=== PATIENT | male | born 1990 | race Caucasian/White ===

== ENCOUNTER 2016-07-27 13:06 | Emergency (ER) | payer SELFPAY ==
[~2016-07-27] VITALS: Ht 177.8 cm; Wt 113.4 kg
[2016-07-27 16:37] VITALS: BP 146/92
== END 2016-07-27 16:37 | disposition home or self-care (01) ==
LOC: ED 13:06
DX: H92.02 Otalgia, left ear (principal); H57.8 Other specified disorders of eye and adnexa

== ENCOUNTER 2017-07-08 10:51 | Emergency (ER) | payer OTHER ==
[~2017-07-08] VITALS: Ht 177.8 cm; Wt 114.8 kg
[2017-07-08 10:57] VITALS: Ht 177.8 cm; Wt 114.8 kg
[2017-07-08 13:20] VITALS: BP 138/86
== END 2017-07-08 14:05 | disposition home or self-care (01) ==
LOC: ED 10:51
DX: H01.003 Unspecified blepharitis right eye, unspecified eyelid (principal); F12.10 Cannabis abuse, uncomplicated

== ENCOUNTER 2017-11-16 21:20 | Emergency (ER) | payer OTHER ==
[~2017-11-16] VITALS: Ht 172.7 cm; Wt 115.2 kg
[2017-11-16 21:22] VITALS: Ht 172.7 cm; Wt 115.2 kg
[2017-11-16 22:10] VITALS: BP 119/78
== END 2017-11-16 22:10 | disposition home or self-care (01) ==
LOC: ED 21:20
DX: R10.13 Epigastric pain (principal); R11.2 Nausea with vomiting, unspecified; R19.7 Diarrhea, unspecified; Z90.49 Acquired absence of other specified parts of digestive tract
CPT/HCPCS: J1885; Q0162

== ENCOUNTER 2019-02-23 18:12 | Emergency (ER) | payer OTHER ==
[~2019-02-23] VITALS: Ht 177.8 cm; Wt 108.4 kg
[2019-02-23 18:27] VITALS: Ht 177.8 cm; Wt 108.4 kg
[2019-02-23 23:47] VITALS: BP 149/88
== END 2019-02-23 23:47 | disposition home or self-care (01) ==
LOC: ED 18:12
DX: T15.92XA Foreign body on external eye, part unspecified, left eye, initial encounter (principal); S05.02XA Injury of conjunctiva and corneal abrasion without foreign body, left eye, initial encounter; X58.XXXA Exposure to other specified factors, initial encounter; Y92.9 Unspecified place or not applicable

== ENCOUNTER 2019-06-18 20:32 | Emergency (ER) | payer OTHER ==
[~2019-06-18] VITALS: Ht 177.8 cm; Wt 105.2 kg
[2019-06-18 20:43] VITALS: Ht 177.8 cm; Wt 105.2 kg
[2019-06-18 21:33] LABS: BASOPHIL % 0.5 % (0-2); PLATELET COUNT 228 x10^3mcL (130-400); RED CELL DISTRIBUTION WIDTH 12.7 % (11.5-14.5)
[2019-06-18 21:44] LABS: CALCIUM 8.1 mg/dL (8.5-10.1); CARBON DIOXIDE 23.5 mmol/L (21-32); CHLORIDE SERUM 105 mmol/L (98-107); CREATININE SERUM 0.6 mg/dL (0.7-1.3); GFR1 > 60 mL/min; POTASSIUM SERUM 3.6 mmol/L (3.5-5.1); SODIUM SERUM 138 mmol/L (136-145)
[2019-06-18 21:48] LABS: ALBUMIN 3.8 g/dL (3.4-5.0); ALKALINE PHOSPHATASE 60 U/L (46-116); ALT/SGPT 30 U/L (16-63); BILIRUBIN TOTAL 0.4 mg/dL (0.20-1.00); LIPASE 136 IU/L (73-393); TOTAL PROTEIN, SERUM 7.3 g/dL (6.4-8.2)
[2019-06-18 22:03] LABS: AST/SGOT 26 U/L (15-37)
[2019-06-18 22:06] LABS: GLUCOSE SERUM 83 mg/dL (74-106)
[2019-06-18 23:30] VITALS: BP 124/75
== END 2019-06-18 23:30 | disposition home or self-care (01) ==
LOC: ED 20:32
PROVIDERS: Emergency Medicine
DX: K64.9 Unspecified hemorrhoids (principal); Z90.49 Acquired absence of other specified parts of digestive tract
CPT/HCPCS: 36415

== ENCOUNTER 2019-07-27 23:10 | Emergency (ER) | payer OTHER ==
[~2019-07-27] VITALS: Ht 177.8 cm; Wt 102.2 kg
[2019-07-27 23:22] VITALS: BP 106/56; Ht 177.8 cm; Wt 102.2 kg
== END 2019-07-28 01:10 | disposition home or self-care (01) ==
LOC: ED 23:10
DX: K21.9 Gastro-esophageal reflux disease without esophagitis (principal)
CPT/HCPCS: 87804; Q0162